=== PATIENT | male | born 2000 | race Caucasian/White ===

== ENCOUNTER 2021-10-21 11:41 | Emergency (ER) | payer OTHER, SELFPAY ==
--- NOTE | ~2021-10-21 | XR_ITS ---
EXAMINATION: XR ANKLE, RIGHT CLINICAL INFORMATION: Lateral ankle pain status post injury. COMPARISON: None TECHNIQUE: AP, lateral, and mortise views of the right ankle. FINDINGS: A small curvilinear density seen along the inferior cortical margin of the lateral malleolus. Moderate spurring seen off the lateral margin of the talus. There is overlying moderate soft tissue swelling. The medial malleolus is intact. The tarsal bones are normally aligned. XR/XR ankle RT min 3V IMPRESSION: Probable small avulsion fracture off of the inferior margin of the lateral malleolus with moderate soft tissue swelling. Spurring off of the adjacent lateral talus does not demonstrate acute features.
[2021-10-21 11:45] VITALS: BP 128/81; PULSE 82; RESP 18; TEMP 36.7; O2SAT 98; BMI 23.3
--- NOTE | 2021-10-21 12:24 | ED.GENADULT ---
HPI - General Adult General Chief complaint: Extremity Injury, Lower Stated complaint: R Ankle Injury 10/20/21 Time Seen by Provider: 10/21/21 12:24 Source: patient Mode of arrival: wheelchair Limitations: no limitations History of Present Illness HPI narrative: Patient is a 21 year old male presenting to the emergency department today with right ankle pain. Patient states that he was playing basketball yesterday and landed on his right ankle wrong. Patient denies any dizziness, lightheadedness, abdominal pain, nausea, vomiting, fever, chills, blurry vision, double vision, loss of vision, chest pain, difficulty breathing, shortness of breath, back pain, night sweats, pain with urination, increased urinary frequency, increased urinary urgency, blood in his urine or stool, syncope or a near syncopal episode, bowel incontinence, bladder incontinence, bowel retention, bladder retention, or any other complaints at this time. Onset (ago): day(s) (1) Location: right and lower extremity Radiation: non-radiation Severity: mild Severity scale (1-10): 2 Quality: dull Pain Consistency: constant Relieving factors: none Exacerbating factors: none Associated symptoms: denies other symptoms Treatments prior to arrival: none Related Data Allergies Allergy/AdvReac Type Severity Reaction Status Date / Time Penicillins Allergy Hives Verified 10/21/21 11:48 Review of Systems Constitutional: Constitutional: Reports no additional constitutional complaints, Denies chills, Denies fever(s) and Denies night sweats Eyes: Eyes: Reports no additional eye complaints, Denies blurry vision, Denies change in vision, Denies diplopia, Denies eye discharge, Denies loss of vision and Denies eye pain ENT: Denies dizziness Cardiovascular: Cardiovascular: Reports no additional cardiovascular complaints, Denies chest pain, Denies lightheadedness, Denies Loss of Consciousness and Denies dyspnea Respiratory: Respiratory: Reports no additional respiratory complaints and Denies dyspnea Gastrointestinal: Gastrointestinal: Reports no additional gastrointestinal complaints, Denies abdominal pain, Denies melena, Denies hematochezia, Denies change in bowel habits and Denies change in stool character Genitourinary: Genitourinary: Reports no additional male genitourinary complaints, Denies hematuria, Denies oliguria, Denies difficulty urinating, Denies dysuria, Denies urinary frequency, Denies urinary hesitancy, Denies urinary incontinence and Denies urinary urgency Musculoskeletal: Musculoskeletal: Reports no additional musculoskeletal complaints, Denies numbness and Denies tingling Comments: right ankle pain Neurologic: Denies dizziness, Denies loss of vision, Denies numbness and Denies tingling Psychiatric: Psychiatric: Reports no additional psychiatric complaints Endocrine: Endocrine: Reports no additional endocrine complaints Hematologic/Lymphatic: Hematologic/Lymphatic: Reports no additional hematologic/lymphatic complaints Allergic/Immunologic: Allergic/Immunologic: Reports no additional allergic/immunologic complaints [facility] Past Medical History Attestation statement: The following information was validated with the patient. Source: old records reviewed Social History Social History Advance Directives: No Advance Directives Information Provided: No Physical Exam ED Vital Signs: Vital Signs - 24 hr 10/21/21 11:45 Temperature 98.0 F Pulse Rate 82 Respiratory Rate 18 Blood Pressure 128/81 Pulse Oximetry 98 Oxygen Delivery Method Room Air BMI result Body Mass Index 23.3 Const General: cooperative, no acute distress, alert and awake Nutritional Appearance: well nourished Orientation/consciousness: patient oriented x3 Limitations: no limitations HENMT Head: Yes normal to inspection and Yes atraumatic Ears: hearing grossly normal bilaterally and external ears normal General nose exam: Normal external nose present, no nasal discharge noted and no epistaxis Face and sinus: Yes normal facial exam, No abrasion and No laceration Mouth: Normal oral and palatal mucosa present, no drooling and no muffled voice Eyes General: appearance normal, both eyes and all related structures Periorbital: periorbital findings normal Eyelids: Yes eyelids normal Conjunctivae: conjunctivae normal Pupils: Equal, round and reactive pupils present EOM: EOMs intact bilaterally Neck Neck: Yes normal visual inspection, Yes full ROM and Yes no lymphadenopathy Chest Chest palpation & inspection: normal inspection of the chest Resp Effort & Inspection: normal respiratory effort and able to speak in complete sentences Auscultation: clear to auscultation bilaterally Cardio Rate: regular rate Rhythm: regular rhythm GI Inspection: Yes normal to inspection Neuro General: patient oriented x3 and moves all extremities Cranial nerves: Yes Equal, round and reactive pupils present Cognition (Neuro): normal cognition Motor exam (neuro): 5/5 motor strength present throughout Sensory Exam: Normal double simultaneous stimulation for sensation Coordination: [id number] test normal Extrem General: Yes normal to inspection, Yes full ROM and Yes capillary refill normal Psych Appearance: grossly normal Mental Status: mental status grossly normal Affect: normal affect Attitude: cooperative Thought process: Normal thought process present Thought content: Normal thought content present Insight: Good insight present (Psych) Procedures Orthopedic Splinting/Casting Injury #1: Side: right Lower Extremity Injury Location: ankle Lower Extremity Immobilizer: boot orthosis Other Orthopedic Equipment: crutches Medical Decision Making MDM Narrative Medical decision making narrative: Patient is a 21 year old male presenting to the emergency department today with right ankle pain. Patient's physical exam was unremarkable. Patient's right x-ray showed an avulsion fracture. I explained my physical exam findings as well as all test results to the patient. I answered all questions asked by the patient. Patient's right foot was placed in a walking boot and the patient was given crutches with crutch instructions. Patient's foot being placed in a boot without incident and the patient had intact PMS prior to and after placement. I stressed the importance of the patient taking his medication as prescribed. I stressed the importance of the patient following up with his primary care provider and orthopedic provider. I stressed the importance of the patient returning to the emergency department immediately if his symptoms were to worsen or if he were to develop any dizziness, shortness of breath, difficulty breathing, chest pain, blurry vision, loss of vision, nausea, vomiting, abdominal pain, fever, chills, back pain, or any other complaints. Differential Diagnosis Differential Diagnosis: ankle fracture Medical Records Medical records reviewed: Yes I reviewed the patient's medical records. Imaging Data Right ankle x-ray: Attestation: I personally reviewed and interpreted this imaging study as follows: My impression: Avulsion fracture Radiologist's impression: EXAMINATION: XR ANKLE, RIGHT CLINICAL INFORMATION: Lateral ankle pain status post injury.? COMPARISON: None? TECHNIQUE: AP, lateral, and mortise views of the right ankle. FINDINGS: A small curvilinear density seen along the inferior cortical margin of the lateral malleolus. Moderate spurring seen off the lateral margin of the talus. There is overlying moderate soft tissue swelling. The medial malleolus is intact. The tarsal bones are normally aligned.? XR/XR ankle RT min 3V IMPRESSION: Probable small avulsion fracture off of the inferior margin of the lateral malleolus with moderate soft tissue swelling. Spurring off of the adjacent lateral talus does not demonstrate acute features. Dictated By: Cail Cardoso MD Signed By: Electronically signed by Cali Cardoso MD 10/21/21 1250 Discharge Plan Discharge Clinical Impression: Ankle fracture Patient Disposition: Home, Self-Care Instructions: Ankle Fracture (ED) Additional Instructions: Follow up with your primary care provider and an orthopedic provider. Return to the emergency department immediately if your symptoms worsen or if you develop any dizziness, shortness of breath, difficulty breathing, chest pain, blurry vision, loss of vision, nausea, vomiting, abdominal pain, fever, chills, back pain, or any other complaints. Referrals: [facility] [place] Family Medicine [Provider Group] (Call to establish and follow up with a primary care provider. If you already have a primary care provider, please make sure to follow up with them. ) [facility] [place] Primary Care, [place] [Provider Group] (Call to establish and follow up with a primary care provider. If you already have a primary care provider, please make sure to follow up with them. ) [facility] [place] Primary Care,[place] [Provider Group] (Call to establish and follow up with a primary care provider. If you already have a primary care provider, please make sure to follow up with them. ) [facility] [place] Orthopedic Surgeons [Provider Group] (Call to establish and follow up with an orthopedic provider. ) Interventions: ED Discharge Assessment Last Done: 10/21/21 13:26 Discharge Date/Time: 10/21/21 13:27 Print Language: Swedish
== END 2021-10-21 13:27 | disposition home or self-care (01) ==
PROVIDERS: Emergency Provider Emergency Medicine
DX: S82.891A Other fracture of right lower leg, initial encounter for closed fracture (principal); M25.572 Pain in left ankle and joints of left foot; Y29.XXXA Contact with blunt object, undetermined intent, initial encounter; Y93.67 Activity, basketball; Y92.310 Basketball court as the place of occurrence of the external cause; Y99.9 Unspecified external cause status
CPT/HCPCS: 29515; 73610; 99283